=== PATIENT | female | born 1955 | race African-American/Black ===

== ENCOUNTER → 2020-12-10 | Day surgery (SDC) | payer OTHER | END | disposition home or self-care (01) | LOC: JRADUS-SUR 08:24 | PROVIDERS: ATTEND Surgery Surgical Oncology | PROC: 0H9U3ZX Drainage of Left Breast, Percutaneous Approach, Diagnostic (ICD-10-PCS; principal; 2020-12-10) | DX: C50.812 Malignant neoplasm of overlapping sites of left female breast (principal) | CPT/HCPCS: 19083; 19084; 77065-TC; 87899; 88305-TC; 88341-TC; 88342-TC; A4648 ==

== ENCOUNTER 2021-01-14 05:11 | Day surgery (SDC) | payer OTHER ==
[2021-01-13 13:15] VITALS: BMI 30.4
[2021-01-14] MEDS ORDERED: MIDAZOLAM HCL 2 MG/2 ML SINGLE DOSE VIAL IVPUSH ONE (12:00)
[2021-01-14] MEDS ORDERED: SODIUM CHLORIDE 0.9% 500 ML IV SCH (12:05)
[2021-01-14 17:32] VITALS: BP 113/66; PULSE 55; TEMP 97.8
== END 2021-01-14 17:00 | disposition home or self-care (01) ==
LOC: JRADIR 05:11
PROVIDERS: ATTEND Internal Medicine Hematology & Oncology
PROC: 0PB03ZX Excision of Sternum, Percutaneous Approach, Diagnostic (ICD-10-PCS; principal; 2021-01-14)
DX: C50.912 Malignant neoplasm of unspecified site of left female breast (principal); C79.51 Secondary malignant neoplasm of bone
CPT/HCPCS: 20220; 88305-TC; 88341-TC; 88342-TC

== ENCOUNTER 2021-02-25 07:28 | Day surgery (SDC) | payer OTHER ==
[2021-02-25] MEDS ORDERED: DENOSUMAB 120 MG/1.7 ML VIAL SQ ONE (10:00)
[2021-02-25 17:24] VITALS: BP 117/69; PULSE 62; TEMP 97.4
== END 2021-02-25 13:47 | disposition home or self-care (01) ==
LOC: JONCCHEMO 07:28
PROVIDERS: ATTEND Internal Medicine Hematology & Oncology
PROC: 3E013GC Introduction of Other Therapeutic Substance into Subcutaneous Tissue, Percutaneous Approach (ICD-10-PCS; principal; 2021-02-25)
DX: C50.912 Malignant neoplasm of unspecified site of left female breast (principal); C79.51 Secondary malignant neoplasm of bone; Z76.89 Persons encountering health services in other specified circumstances
CPT/HCPCS: 96372; J0897

== ENCOUNTER 2021-03-25 08:55 | Day surgery (SDC) | payer OTHER ==
[2021-03-25] MEDS ORDERED: DENOSUMAB 120 MG/1.7 ML VIAL SQ ONE (10:00)
[2021-03-25 11:18] LABS: BASO % 1.4 % (0-2.0); EOS % 2.6 % (0-4.5); HEMATOCRIT 36.7 % (32.4-45.2); HEMOGLOBIN 11.8 GM/dL (10.7-15.3); LYMPH % 44.8 % (8-40); MCH 30.9 pg (25.7-33.7); MCHC 32.1 g/dl (32.0-36.0); MEAN CELL VOLUME 96.1 fl (80-96); MONO % 6.3 % (3.8-10.2); NEUT % 44.9 % (42.8-82.8); PLATELET COUNT 322 10^3/uL (134-434); RBC 3.82 M/mm3 (3.60-5.2); RDW 15.3 % (11.6-15.6); WHITE BLOOD COUNT 4.5 K/mm3 (4.0-10.0)
[2021-03-25 11:52] LABS: CALCIUM 8.9 mg/dL (8.5-10.1)
[2021-03-25 11:53] LABS: ALBUMIN 3.7 g/dl (3.4-5.0)
[2021-03-25 11:57] LABS: BILIRUBIN,TOTAL 0.5 mg/dL (0.2-1); TOT PROT 7.1 g/dl (6.4-8.2)
[2021-03-25 16:33] VITALS: BP 108/62; PULSE 61; TEMP 97.7
== END 2021-03-25 13:00 | disposition home or self-care (01) ==
LOC: JONCCHEMO 08:55
PROVIDERS: ATTEND Internal Medicine Hematology & Oncology
PROC: 3E013GC Introduction of Other Therapeutic Substance into Subcutaneous Tissue, Percutaneous Approach (ICD-10-PCS; principal; 2021-03-25)
DX: C50.112 Malignant neoplasm of central portion of left female breast (principal); Z17.0 Estrogen receptor positive status [ER+]; Z76.89 Persons encountering health services in other specified circumstances
CPT/HCPCS: 36415; 80053; 85025; 96372; J0897

== ENCOUNTER 2021-04-22 07:17 | Day surgery (SDC) | payer OTHER ==
[2021-04-22] MEDS ORDERED: DENOSUMAB 120 MG/1.7 ML VIAL SQ ONE (10:00)
[2021-04-22 11:54] LABS: BASO % 1.3 % (0-2.0); EOS % 2.2 % (0-4.5); HEMATOCRIT 37.3 % (32.4-45.2); HEMOGLOBIN 12.3 GM/dL (10.7-15.3); LYMPH % 48.7 % (8-40); MCH 32.8 pg (25.7-33.7); MEAN CELL VOLUME 99.5 fl (80-96); MEAN PLT VOLUME 7.4 fl (7.5-11.1); MONO % 6.4 % (3.8-10.2); NEUT % 41.4 % (42.8-82.8); PLATELET COUNT 176 10^3/uL (134-434); RBC 3.75 M/mm3 (3.60-5.2); RDW 20.1 % (11.6-15.6); WHITE BLOOD COUNT 5.9 K/mm3 (4.0-10.0)
[2021-04-22 12:14] LABS: ALBUMIN 3.9 g/dl (3.4-5.0); BLOOD UREA NITROGEN 16.8 mg/dL (7-18)
[2021-04-22 12:19] LABS: BILIRUBIN,TOTAL 0.4 mg/dL (0.2-1)
[2021-04-22 18:13] VITALS: BP 101/62; PULSE 89; TEMP 98
== END 2021-04-22 13:15 | disposition home or self-care (01) ==
LOC: JONCCHEMO 07:17
PROVIDERS: ATTEND Internal Medicine Hematology & Oncology
PROC: 3E013GC Introduction of Other Therapeutic Substance into Subcutaneous Tissue, Percutaneous Approach (ICD-10-PCS; principal; 2021-04-22)
DX: Z76.89 Persons encountering health services in other specified circumstances (principal); C50.112 Malignant neoplasm of central portion of left female breast; Z17.0 Estrogen receptor positive status [ER+]
CPT/HCPCS: 36415; 80053; 85025; 96372; J0897

== ENCOUNTER 2021-05-06 05:43 | Day surgery (SDC) | payer OTHER ==
[2021-05-01 13:50] VITALS: BMI 30.6
[2021-05-06] MEDS ORDERED: SODIUM CHLORIDE 500 ML IV SCH (10:30)
[2021-05-06] MEDS ORDERED: MIDAZOLAM HCL 2 MG/2 ML SINGLE DOSE VIAL IVPUSH ONE ×2 (10:40→10:55)
[2021-05-06] MEDS ORDERED: ACETAMINOPHEN INJECTION 100 ML IVPB ONE (13:10)
[2021-05-06] MEDS ORDERED: ACETAMINOPHEN 1000 MG/100 ML BAG IVPB ONE (13:24)
[2021-05-06 15:05] VITALS: BP 114/65; PULSE 68; TEMP 98.9
== END 2021-05-06 16:22 | disposition home or self-care (01) ==
LOC: JRADIR 05:43
PROVIDERS: ATTEND Internal Medicine Hematology & Oncology
PROC: 0JH63WZ Insertion of Totally Implantable Vascular Access Device into Chest Subcutaneous Tissue and Fascia, Percutaneous Approach (ICD-10-PCS; principal; 2021-05-06)
PROC: 02HV33Z Insertion of Infusion Device into Superior Vena Cava, Percutaneous Approach (ICD-10-PCS; 2021-05-06)
PROC: B518ZZA Fluoroscopy of Superior Vena Cava, Guidance (ICD-10-PCS; 2021-05-06)
DX: C50.919 Malignant neoplasm of unspecified site of unspecified female breast (principal)
CPT/HCPCS: 36561; C1751; C1788

== ENCOUNTER 2021-05-07 07:00 | Day surgery (SDC) | payer OTHER ==
[2021-05-07 09:36] LABS: BASO % 1.5 % (0-2.0); EOS % 5.4 % (0-4.5); HEMATOCRIT 36.6 % (32.4-45.2); HEMOGLOBIN 12.1 GM/dL (10.7-15.3); LYMPH % 23.9 % (8-40); MCH 32.8 pg (25.7-33.7); MCHC 33.1 g/dl (32.0-36.0); MEAN CELL VOLUME 99.1 fl (80-96); MEAN PLT VOLUME 8.6 fl (7.5-11.1); MONO % 6.8 % (3.8-10.2); NEUT % 62.4 % (42.8-82.8); PLATELET COUNT 234 10^3/uL (134-434); RBC 3.69 M/mm3 (3.60-5.2); RDW 19.7 % (11.6-15.6); WHITE BLOOD COUNT 6.9 K/mm3 (4.0-10.0)
[2021-05-07] MEDS ORDERED: ONDANSETRON 4 MG/2 ML VIAL IVPB ONE (09:39)
[2021-05-07] MEDS ORDERED: SODIUM CHLORIDE 250 ML IV STA (09:52)
[2021-05-07] MEDS ORDERED: ONDANSETRON INJECTION 8 MG in SODIUM CHLORIDE 50 ML IVPB ONE (10:00)
[2021-05-07] MEDS ORDERED: ONDANSETRON INJECTION 8 MG in SODIUM CHLORIDE 50 ML IVPUSH ONE (10:00)
[2021-05-07 10:05] LABS: CALCIUM 9.1 mg/dL (8.5-10.1)
[2021-05-07 10:06] LABS: ALBUMIN 3.7 g/dl (3.4-5.0); BLOOD UREA NITROGEN 24.6 mg/dL (7-18)
[2021-05-07 10:10] LABS: BILIRUBIN,TOTAL 0.7 mg/dL (0.2-1); TOT PROT 6.8 g/dl (6.4-8.2)
[2021-05-07] MEDS ORDERED: DEXAMETHASONE SODIUM PHOSPHATE 10 MG, DIPHENHYDRAMINE 25 MG in SODIUM CHLORIDE 100 ML IVPB ONE (10:30)
[2021-05-07] MEDS ORDERED: FAMOTIDINE 20 MG/50 ML IVPB 20 MG/50 ML MG IVPB ONE (10:30)
[2021-05-07] MEDS ORDERED: PERTUZUMAB 840 MG in SODIUM CHLORIDE 250 ML IVPB ONE (11:00)
[2021-05-07] MEDS ORDERED: TRASTUZUMAB ANNS IVPB ONE (12:00)
[2021-05-07] MEDS ORDERED: SODIUM CHLORIDE IVPB ONE (12:00)
[2021-05-07] MEDS ORDERED: PACLITAXEL 150 MG in SODIUM CHLORIDE 250 ML IVPB ONE (13:30)
[2021-05-07 15:56] VITALS: TEMP 98.4
[2021-05-07 17:46] VITALS: BP 118/68; PULSE 76
== END 2021-05-07 17:30 | disposition home or self-care (01) ==
LOC: JONCCHEMO 07:00
PROVIDERS: ATTEND Internal Medicine Hematology & Oncology
DX: Z51.11 Encounter for antineoplastic chemotherapy (principal); C50.919 Malignant neoplasm of unspecified site of unspecified female breast
CPT/HCPCS: 36415; 80053; 85025; 96361; 96367; 96413; 96417; J9306; Q5117

== ENCOUNTER 2021-05-14 07:37 | Day surgery (SDC) | payer OTHER ==
[~2021-05-14 07:37] MED LIST: DEXAMETHASONE SODIUM PHOSPHATE 10 MG, DIPHENHYDRAMINE 25 MG in SODIUM CHLORIDE 100 ML IVPB ONE; FAMOTIDINE 20 MG/50 ML IVPB 20 MG/50 ML MG IVPB ONE; PACLITAXEL 150 MG in SODIUM CHLORIDE 250 ML IVPB ONE; PERTUZUMAB 840 MG in SODIUM CHLORIDE 250 ML IVPB ONE; SODIUM CHLORIDE IVPB ONE; TRASTUZUMAB ANNS IVPB ONE
[2021-05-14 08:49] LABS: BASO % 2.2 % (0-2.0); EOS % 6.5 % (0-4.5); HEMATOCRIT 34.8 % (32.4-45.2); HEMOGLOBIN 11.4 GM/dL (10.7-15.3); LYMPH % 30.6 % (8-40); MCH 32.6 pg (25.7-33.7); MCHC 32.7 g/dl (32.0-36.0); MEAN CELL VOLUME 99.7 fl (80-96); MEAN PLT VOLUME 9.1 fl (7.5-11.1); NEUT % 56.7 % (42.8-82.8); PLATELET COUNT 230 10^3/uL (134-434); RBC 3.49 M/mm3 (3.60-5.2); RDW 18.9 % (11.6-15.6); WHITE BLOOD COUNT 5.5 K/mm3 (4.0-10.0)
[2021-05-14 08:59] LABS: ALBUMIN 3.4 g/dl (3.4-5.0)
[2021-05-14 09:03] LABS: BILIRUBIN,TOTAL 1.7 mg/dL (0.2-1); TOT PROT 6.7 g/dl (6.4-8.2)
[2021-05-14] MEDS ORDERED: SODIUM CHLORIDE 500 ML IV STA (09:43)
[2021-05-14] MEDS ORDERED: SODIUM CHLORIDE 1,000 ML IV STA (09:45)
[2021-05-14] MEDS ORDERED: DEXAMETHASONE SODIUM PHOSPHATE 10 MG, DIPHENHYDRAMINE 25 MG in SODIUM CHLORIDE 100 ML IVPB ONE (10:30)
[2021-05-14] MEDS ORDERED: FAMOTIDINE 20 MG/50 ML IVPB 20 MG/50 ML MG IVPB ONE (10:30)
[2021-05-14] MEDS ORDERED: PACLITAXEL 150 MG in SODIUM CHLORIDE 250 ML IVPB ONE (11:00)
[2021-05-14] MEDS ORDERED: LOPERAMIDE HCL 2 MG CAPSULE PO ONE (12:00)
[2021-05-14 16:47] VITALS: TEMP 98
[2021-05-14 16:50] VITALS: BP 113/64; PULSE 68
[2021-05-14] MEDS ORDERED: PORTA CATH FLUSH 10 ML IVPUSH ONE (16:50)
== END 2021-05-14 13:45 | disposition home or self-care (01) ==
LOC: JONCCHEMO 07:37
PROVIDERS: ATTEND Internal Medicine Hematology & Oncology
PROC: 3E0337Z Introduction of Electrolytic and Water Balance Substance into Peripheral Vein, Percutaneous Approach (ICD-10-PCS; principal; 2021-05-14)
DX: Z76.89 Persons encountering health services in other specified circumstances (principal); C50.911 Malignant neoplasm of unspecified site of right female breast
CPT/HCPCS: 36415; 80053; 85025; 96360; 96361; Q5117

== ENCOUNTER 2021-05-21 08:28 | Day surgery (SDC) | payer OTHER ==
[2021-05-21 08:38] LABS: BASO % 1.3 % (0-2.0); HEMATOCRIT 35.7 % (32.4-45.2); HEMOGLOBIN 11.7 GM/dL (10.7-15.3); LYMPH % 28.7 % (8-40); MCH 32.5 pg (25.7-33.7); MCHC 32.9 g/dl (32.0-36.0); MEAN CELL VOLUME 98.8 fl (80-96); MEAN PLT VOLUME 8.4 fl (7.5-11.1); MONO % 8.2 % (3.8-10.2); NEUT % 56.8 % (42.8-82.8); PLATELET COUNT 239 10^3/uL (134-434); RBC 3.61 M/mm3 (3.60-5.2); RDW 18.6 % (11.6-15.6); WHITE BLOOD COUNT 5.5 K/mm3 (4.0-10.0)
[2021-05-21 09:27] LABS: ALBUMIN 3.4 g/dl (3.4-5.0); CALCIUM 8.6 mg/dL (8.5-10.1)
[2021-05-21] MEDS ORDERED: DEXAMETHASONE SODIUM PHOSPHATE 10 MG, DIPHENHYDRAMINE 25 MG in SODIUM CHLORIDE 100 ML IVPB ONE (09:30)
[2021-05-21] MEDS ORDERED: FAMOTIDINE 20 MG/50 ML IVPB 20 MG/50 ML MG IVPB ONE (09:30)
[2021-05-21 09:33] LABS: BILIRUBIN,TOTAL 0.9 mg/dL (0.2-1); TOT PROT 6.5 g/dl (6.4-8.2)
[2021-05-21] MEDS ORDERED: PACLITAXEL 150 MG in SODIUM CHLORIDE 250 ML IVPB ONE (10:00)
[2021-05-21 10:22] VITALS: TEMP 98.1
[2021-05-21] MEDS ORDERED: PORTA CATH FLUSH 10 ML IVPUSH PRN (10:37)
[2021-05-21 15:20] VITALS: BP 117/73; PULSE 69
== END 2021-05-21 12:30 | disposition home or self-care (01) ==
LOC: JONCCHEMO 08:28
PROVIDERS: ATTEND Internal Medicine Hematology & Oncology
DX: Z51.11 Encounter for antineoplastic chemotherapy (principal); C50.911 Malignant neoplasm of unspecified site of right female breast
CPT/HCPCS: 36415; 80053; 85025; 96367; 96413

== ENCOUNTER 2021-05-28 08:33 | Day surgery (SDC) | payer OTHER ==
[2021-05-28] MEDS ORDERED: DENOSUMAB 120 MG/1.7 ML VIAL SQ ONE (09:24)
[2021-05-28] MEDS ORDERED: DEXAMETHASONE SODIUM PHOSPHATE 10 MG, DIPHENHYDRAMINE 25 MG in SODIUM CHLORIDE 100 ML IVPB ONE (09:30)
[2021-05-28] MEDS ORDERED: FAMOTIDINE 20 MG/50 ML IVPB 20 MG/50 ML MG IVPB ONE (09:30)
[2021-05-28] MEDS ORDERED: PACLITAXEL 150 MG in SODIUM CHLORIDE 250 ML IVPB ONE (10:00)
[2021-05-28 10:26] LABS: BASO % 2.1 % (0-2.0); HEMATOCRIT 35.9 % (32.4-45.2); HEMOGLOBIN 11.9 GM/dL (10.7-15.3); LYMPH % 33.2 % (8-40); MCH 32.9 pg (25.7-33.7); MCHC 33.2 g/dl (32.0-36.0); MEAN CELL VOLUME 98.9 fl (80-96); MEAN PLT VOLUME 9.1 fl (7.5-11.1); MONO % 2.9 % (3.8-10.2); NEUT % 59.8 % (42.8-82.8); PLATELET COUNT 187 10^3/uL (134-434); RBC 3.63 M/mm3 (3.60-5.2); RDW 17.6 % (11.6-15.6); WHITE BLOOD COUNT 5.9 K/mm3 (4.0-10.0)
[2021-05-28 10:53] LABS: BLOOD UREA NITROGEN 9.4 mg/dL (7-18); CALCIUM 8.7 mg/dL (8.5-10.1)
[2021-05-28 10:54] LABS: ALBUMIN 3.6 g/dl (3.4-5.0)
[2021-05-28 10:56] LABS: CREATININE 0.9 mg/dL (0.55-1.3)
[2021-05-28 17:05] VITALS: TEMP 98
[2021-05-28] MEDS ORDERED: PORTA CATH FLUSH 10 ML IVPUSH PRN (17:05)
[2021-05-28 17:11] VITALS: BP 118/81; PULSE 81
== END 2021-05-28 13:45 | disposition home or self-care (01) ==
LOC: JONCCHEMO 08:33
PROVIDERS: ATTEND Internal Medicine Hematology & Oncology
DX: Z51.11 Encounter for antineoplastic chemotherapy (principal); C50.911 Malignant neoplasm of unspecified site of right female breast
CPT/HCPCS: 36415; 80053; 85025; 96367; 96372; 96413; J0897

== ENCOUNTER 2021-06-04 07:05 | Day surgery (SDC) | payer OTHER ==
[2021-06-04] MEDS ORDERED: FAMOTIDINE 20 MG/50 ML IVPB 20 MG/50 ML MG IVPB ONE ×2 (09:30)
[2021-06-04] MEDS ORDERED: DEXAMETHASONE SODIUM PHOSPHATE 10 MG, DIPHENHYDRAMINE 25 MG in SODIUM CHLORIDE 100 ML IVPB ONE (09:30)
[2021-06-04 09:32] LABS: BASO % 1.1 % (0-2.0); EOS % 1.4 % (0-4.5); HEMATOCRIT 36.6 % (32.4-45.2); LYMPH % 34.1 % (8-40); MCH 32.5 pg (25.7-33.7); MCHC 32.7 g/dl (32.0-36.0); MEAN CELL VOLUME 99.6 fl (80-96); MEAN PLT VOLUME 9.2 fl (7.5-11.1); MONO % 4.6 % (3.8-10.2); NEUT % 58.8 % (42.8-82.8); PLATELET COUNT 215 10^3/uL (134-434); RBC 3.68 M/mm3 (3.60-5.2); RDW 17.8 % (11.6-15.6); WHITE BLOOD COUNT 3.9 K/mm3 (4.0-10.0)
[2021-06-04 09:49] LABS: ALBUMIN 4.1 g/dl (3.4-5.0); BLOOD UREA NITROGEN 7.4 mg/dL (7-18)
[2021-06-04 09:52] LABS: CREATININE 1.2 mg/dL (0.55-1.3)
[2021-06-04 09:53] LABS: BILIRUBIN,TOTAL 1.4 mg/dL (0.2-1)
[2021-06-04 09:54] LABS: TOT PROT 7.3 g/dl (6.4-8.2)
[2021-06-04] MEDS ORDERED: FAMOTIDINE IVPB ONE (10:00)
[2021-06-04] MEDS ORDERED: PERTUZUMAB 420 MG in SODIUM CHLORIDE 250 ML IVPB ONE (10:00)
[2021-06-04] MEDS ORDERED: DEXTROSE 5% IVPB ONE (10:00)
[2021-06-04] MEDS ORDERED: WATER IVPB ONE (10:00)
[2021-06-04] MEDS ORDERED: SODIUM CHLORIDE 1,000 ML IV STA (10:11)
[2021-06-04] MEDS ORDERED: SODIUM CHLORIDE IVPB ONE (10:30)
[2021-06-04] MEDS ORDERED: TRASTUZUMAB ANNS IVPB ONE (10:30)
[2021-06-04] MEDS ORDERED: PACLITAXEL 150 MG in SODIUM CHLORIDE 250 ML IVPB ONE (11:00)
[2021-06-04 17:01] VITALS: TEMP 98.5
[2021-06-04] MEDS ORDERED: PORTA CATH FLUSH 10 ML IVPUSH PRN (17:04)
[2021-06-04 17:06] VITALS: BP 107/57; PULSE 72
== END 2021-06-04 14:00 | disposition home or self-care (01) ==
LOC: JONCCHEMO 07:05
PROVIDERS: ATTEND Internal Medicine Hematology & Oncology
PROC: 3E0437Z Introduction of Electrolytic and Water Balance Substance into Central Vein, Percutaneous Approach (ICD-10-PCS; principal; 2021-06-04)
DX: C50.911 Malignant neoplasm of unspecified site of right female breast (principal); Z76.89 Persons encountering health services in other specified circumstances
CPT/HCPCS: 36415; 80053; 85025; 87177; 87209; 87324; 87449; 96360; 96361; Q5117

== ENCOUNTER 2021-06-05 08:22 | Day surgery (SDC) | payer OTHER ==
[2021-06-05] MEDS ORDERED: SODIUM CHLORIDE 1,000 ML IV STA (10:22)
[2021-06-05 17:16] VITALS: TEMP 98.3
[2021-06-05 17:19] VITALS: BP 129/61; PULSE 67
[2021-06-05] MEDS ORDERED: PORTA CATH FLUSH 10 ML IVPUSH PRN (17:19)
== END 2021-06-05 13:45 | disposition home or self-care (01) ==
LOC: JONCNONCHE 08:22
PROVIDERS: ATTEND Internal Medicine Hematology & Oncology
PROC: 3E0437Z Introduction of Electrolytic and Water Balance Substance into Central Vein, Percutaneous Approach (ICD-10-PCS; principal; 2021-06-05)
DX: C50.919 Malignant neoplasm of unspecified site of unspecified female breast (principal); Z17.0 Estrogen receptor positive status [ER+]; Z76.89 Persons encountering health services in other specified circumstances
CPT/HCPCS: 96360; 96361; 96365; 96366

== ENCOUNTER 2021-06-11 07:22 | Day surgery (SDC) | payer OTHER ==
[~2021-06-11 07:22] MED LIST changes: -DEXAMETHASONE SODIUM PHOSPHATE 10 MG, DIPHENHYDRAMINE 25 MG in SODIUM CHLORIDE 100 ML IVPB ONE; -PACLITAXEL 150 MG in SODIUM CHLORIDE 250 ML IVPB ONE; -PERTUZUMAB 840 MG in SODIUM CHLORIDE 250 ML IVPB ONE; -SODIUM CHLORIDE IVPB ONE; -TRASTUZUMAB ANNS IVPB ONE
[2021-06-11 09:07] LABS: BASO % 1.1 % (0-2.0); EOS % 1.7 % (0-4.5); HEMATOCRIT 34.9 % (32.4-45.2); HEMOGLOBIN 11.5 GM/dL (10.7-15.3); LYMPH % 31.3 % (8-40); MCH 32.5 pg (25.7-33.7); MCHC 32.9 g/dl (32.0-36.0); MEAN CELL VOLUME 98.8 fl (80-96); MEAN PLT VOLUME 8.4 fl (7.5-11.1); MONO % 8.7 % (3.8-10.2); NEUT % 57.2 % (42.8-82.8); PLATELET COUNT 218 10^3/uL (134-434); RBC 3.53 M/mm3 (3.60-5.2); RDW 17.4 % (11.6-15.6)
[2021-06-11] MEDS ORDERED: SODIUM CHLORIDE 500 ML IV STA (09:27)
[2021-06-11] MEDS ORDERED: FAMOTIDINE 20 MG/50 ML IVPB 20 MG/50 ML MG IVPB ONE (09:30)
[2021-06-11] MEDS ORDERED: DEXAMETHASONE SODIUM PHOSPHATE 10 MG, DIPHENHYDRAMINE 25 MG in SODIUM CHLORIDE 100 ML IVPB ONE (09:30)
[2021-06-11 09:31] LABS: ALBUMIN 3.5 g/dl (3.4-5.0); CALCIUM 8.4 mg/dL (8.5-10.1); MAGNESIUM 1.8 mg/dL (1.8-2.4)
[2021-06-11 09:32] LABS: BLOOD UREA NITROGEN 5.7 mg/dL (7-18)
[2021-06-11 09:35] LABS: CREATININE 0.9 mg/dL (0.55-1.3)
[2021-06-11 09:36] LABS: BILIRUBIN,TOTAL 0.9 mg/dL (0.2-1); TOT PROT 6.4 g/dl (6.4-8.2)
[2021-06-11] MEDS ORDERED: TRASTUZUMAB ANNS IVPB ONE (10:00)
[2021-06-11] MEDS ORDERED: SODIUM CHLORIDE IVPB ONE (10:00)
[2021-06-11] MEDS ORDERED: PACLITAXEL 150 MG in SODIUM CHLORIDE 250 ML IVPB ONE (10:00)
[2021-06-11] MEDS ORDERED: PACLITAXEL 114 MG in SODIUM CHLORIDE 250 ML IVPB ONE (10:30)
[2021-06-11 18:20] VITALS: BP 126/74; PULSE 66; TEMP 98.1
[2021-06-11] MEDS ORDERED: PORTA CATH FLUSH 10 ML IVPUSH PRN (18:20)
== END 2021-06-11 15:15 | disposition home or self-care (01) ==
LOC: JONCCHEMO 07:22
PROVIDERS: ATTEND Internal Medicine Hematology & Oncology
DX: Z51.11 Encounter for antineoplastic chemotherapy (principal); C50.919 Malignant neoplasm of unspecified site of unspecified female breast; Z17.0 Estrogen receptor positive status [ER+]
CPT/HCPCS: 36415; 80053; 83735; 85025; 96361; 96367; 96413; 96417; Q5117

== ENCOUNTER 2021-06-15 08:58 | Day surgery (SDC) | payer OTHER ==
[2021-06-15] MEDS ORDERED: SODIUM CHLORIDE 500 ML IV STA (09:13)
[2021-06-15] MEDS ORDERED: PORTA CATH FLUSH 10 ML IVPUSH PRN (11:30)
[2021-06-15 11:33] LABS: BLOOD UREA NITROGEN 10.5 mg/dL (7-18)
[2021-06-15 11:34] LABS: ALBUMIN 3.6 g/dl (3.4-5.0); BILIRUBIN,TOTAL 2.1 mg/dL (0.2-1); CREATININE 0.9 mg/dL (0.55-1.3); TOT PROT 6.6 g/dl (6.4-8.2)
[2021-06-15 17:10] VITALS: BP 122/69; PULSE 67; TEMP 98.2
== END 2021-06-15 11:45 | disposition home or self-care (01) ==
LOC: JONCNONCHE 08:58
PROVIDERS: ATTEND Internal Medicine Hematology & Oncology
PROC: 3E0437Z Introduction of Electrolytic and Water Balance Substance into Central Vein, Percutaneous Approach (ICD-10-PCS; principal; 2021-06-15)
DX: C50.919 Malignant neoplasm of unspecified site of unspecified female breast (principal); Z76.89 Persons encountering health services in other specified circumstances
CPT/HCPCS: 36415; 80053; 96360; 96361

== ENCOUNTER 2021-06-18 07:16 | Day surgery (SDC) | payer OTHER ==
[2021-06-18 08:47] LABS: BASO % 1.3 % (0-2.0); EOS % 1.3 % (0-4.5); HEMATOCRIT 35.4 % (32.4-45.2); HEMOGLOBIN 11.5 GM/dL (10.7-15.3); LYMPH % 34.2 % (8-40); MCH 32.1 pg (25.7-33.7); MCHC 32.4 g/dl (32.0-36.0); MEAN CELL VOLUME 99.1 fl (80-96); MEAN PLT VOLUME 8.9 fl (7.5-11.1); MONO % 4.2 % (3.8-10.2); PLATELET COUNT 219 10^3/uL (134-434); RBC 3.57 M/mm3 (3.60-5.2); RDW 17.4 % (11.6-15.6); WHITE BLOOD COUNT 5.9 K/mm3 (4.0-10.0)
[2021-06-18 09:25] LABS: ALBUMIN 3.6 g/dl (3.4-5.0); BLOOD UREA NITROGEN 9.8 mg/dL (7-18); MAGNESIUM 1.9 mg/dL (1.8-2.4)
[2021-06-18 09:27] LABS: TOT PROT 6.7 g/dl (6.4-8.2)
[2021-06-18 09:28] LABS: CREATININE 0.9 mg/dL (0.55-1.3)
[2021-06-18 09:29] LABS: BILIRUBIN,TOTAL 1.1 mg/dL (0.2-1)
[2021-06-18] MEDS ORDERED: SODIUM CHLORIDE 500 ML IV STA (09:36)
[2021-06-18] MEDS ORDERED: DEXAMETHASONE SODIUM PHOSPHATE 10 MG, DIPHENHYDRAMINE 25 MG in SODIUM CHLORIDE 100 ML IVPB ONE (10:00)
[2021-06-18] MEDS ORDERED: FAMOTIDINE 20 MG/50 ML IVPB 20 MG/50 ML MG IVPB ONE (10:00)
[2021-06-18] MEDS ORDERED: PERTUZUMAB 420 MG in SODIUM CHLORIDE 250 ML IVPB ONE (10:30)
[2021-06-18] MEDS ORDERED: TRASTUZUMAB ANNS IVPB ONE (11:30)
[2021-06-18] MEDS ORDERED: SODIUM CHLORIDE IVPB ONE (11:30)
[2021-06-18] MEDS ORDERED: PACLITAXEL 114 MG in SODIUM CHLORIDE 250 ML IVPB ONE (12:00)
[2021-06-18 15:47] VITALS: TEMP 97.9
[2021-06-18] MEDS ORDERED: PORTA CATH FLUSH 10 ML IVPUSH PRN (15:47)
[2021-06-18 15:49] VITALS: BP 130/79; PULSE 69
== END 2021-06-18 15:00 | disposition home or self-care (01) ==
LOC: JONCCHEMO 07:16
PROVIDERS: ATTEND Internal Medicine Hematology & Oncology
DX: Z51.11 Encounter for antineoplastic chemotherapy (principal); C50.919 Malignant neoplasm of unspecified site of unspecified female breast
CPT/HCPCS: 36415; 80053; 83735; 85025; 96367; 96413; 96417; J9306; Q5117

== ENCOUNTER 2021-06-22 06:51 | Day surgery (SDC) | payer OTHER ==
[2021-06-22] MEDS ORDERED: SODIUM CHLORIDE 500 ML IV ONE (08:45)
[2021-06-22] MEDS ORDERED: SODIUM CHLORIDE 1,000 ML IV ONE (08:45)
[2021-06-22 17:59] VITALS: BP 117/66; PULSE 77; TEMP 98.6
== END 2021-06-22 11:40 | disposition home or self-care (01) ==
LOC: JONCNONCHE 06:51
PROVIDERS: ATTEND Internal Medicine Hematology & Oncology
PROC: 3E0437Z Introduction of Electrolytic and Water Balance Substance into Central Vein, Percutaneous Approach (ICD-10-PCS; principal; 2021-06-22)
DX: C50.919 Malignant neoplasm of unspecified site of unspecified female breast (principal); Z79.84 Long term (current) use of oral hypoglycemic drugs
CPT/HCPCS: 96360; 96361

== ENCOUNTER 2021-06-25 06:59 | Day surgery (SDC) | payer OTHER ==
[2021-06-25 09:09] LABS: EOS % 1.1 % (0-4.5); HEMATOCRIT 34.4 % (32.4-45.2); HEMOGLOBIN 11.3 GM/dL (10.7-15.3); LYMPH % 36.3 % (8-40); MCH 32.7 pg (25.7-33.7); MCHC 32.8 g/dl (32.0-36.0); MEAN CELL VOLUME 99.7 fl (80-96); MONO % 3.7 % (3.8-10.2); NEUT % 57.9 % (42.8-82.8); PLATELET COUNT 200 10^3/uL (134-434); RBC 3.45 M/mm3 (3.60-5.2); RDW 17.1 % (11.6-15.6)
[2021-06-25 09:26] LABS: CALCIUM 8.6 mg/dL (8.5-10.1)
[2021-06-25 09:27] LABS: ALBUMIN 3.7 g/dl (3.4-5.0); BLOOD UREA NITROGEN 8.4 mg/dL (7-18)
[2021-06-25 09:30] LABS: CREATININE 0.9 mg/dL (0.55-1.3)
[2021-06-25] MEDS ORDERED: DEXAMETHASONE SODIUM PHOSPHATE 10 MG, DIPHENHYDRAMINE 25 MG in SODIUM CHLORIDE 100 ML IVPB ONE (09:30)
[2021-06-25] MEDS ORDERED: WATER IVPB ONE ×2 (09:30→10:30)
[2021-06-25] MEDS ORDERED: FAMOTIDINE IVPB ONE (09:30)
[2021-06-25] MEDS ORDERED: DEXTROSE 5% IVPB ONE ×2 (09:30→10:30)
[2021-06-25] MEDS ORDERED: DEXAMETHASONE SOD PHOSPHATE 4 MG/1 ML VIAL IVPB ONE (09:31)
[2021-06-25 09:32] LABS: BILIRUBIN,TOTAL 2.1 mg/dL (0.2-1); TOT PROT 6.7 g/dl (6.4-8.2)
[2021-06-25] MEDS ORDERED: SODIUM CHLORIDE 500 ML IV STA (09:33)
[2021-06-25] MEDS ORDERED: SODIUM CHLORIDE IVPB ONE ×2 (10:00→12:30)
[2021-06-25] MEDS ORDERED: TRASTUZUMAB ANNS IVPB ONE (10:00)
[2021-06-25 10:07] VITALS: TEMP 98.2
[2021-06-25] MEDS ORDERED: DEXAMETHASONE IVPB ONE (10:30)
[2021-06-25] MEDS ORDERED: DIPHENHYDRAMINE IVPB ONE ×2 (10:30→12:30)
[2021-06-25] MEDS ORDERED: PACLITAXEL 114 MG in SODIUM CHLORIDE 250 ML IVPB ONE (10:30)
[2021-06-25] MEDS ORDERED: DEXAMETHASONE SODIUM PHOSPHATE IVPB ONE (12:30)
[2021-06-25 14:31] LABS: HEPATITIS B SURFACE AG MATERN NON-REACTIVE (NONREACTIVE)
[2021-06-25 15:45] VITALS: BP 134/72; PULSE 71
[2021-06-25] MEDS ORDERED: PORTA CATH FLUSH 10 ML IVPUSH PRN (15:45)
== END 2021-06-25 15:46 | disposition home or self-care (01) ==
LOC: JONCCHEMO 06:59
PROVIDERS: ATTEND Internal Medicine Hematology & Oncology
DX: Z51.11 Encounter for antineoplastic chemotherapy (principal); C50.919 Malignant neoplasm of unspecified site of unspecified female breast
CPT/HCPCS: 36415; 80053; 85025; 86704; 87340; 87522; 96361; 96367; 96413; 96417; Q5117

== ENCOUNTER 2021-07-02 08:17 | Day surgery (SDC) | payer OTHER ==
[2021-07-02 08:40] LABS: BASO % 1.3 % (0-2.0); EOS % 1.5 % (0-4.5); HEMATOCRIT 35.8 % (32.4-45.2); HEMOGLOBIN 11.7 GM/dL (10.7-15.3); LYMPH % 46.4 % (8-40); MCH 32.3 pg (25.7-33.7); MCHC 32.6 g/dl (32.0-36.0); MEAN CELL VOLUME 99.2 fl (80-96); MEAN PLT VOLUME 8.7 fl (7.5-11.1); MONO % 5.4 % (3.8-10.2); NEUT % 45.4 % (42.8-82.8); PLATELET COUNT 249 10^3/uL (134-434); RBC 3.61 M/mm3 (3.60-5.2); RDW 17.1 % (11.6-15.6); WHITE BLOOD COUNT 3.7 K/mm3 (4.0-10.0)
[2021-07-02 08:51] LABS: CALCIUM 8.9 mg/dL (8.5-10.1)
[2021-07-02 08:52] LABS: ALBUMIN 3.7 g/dl (3.4-5.0); BLOOD UREA NITROGEN 5.9 mg/dL (7-18)
[2021-07-02 08:55] LABS: CREATININE 0.9 mg/dL (0.55-1.3)
[2021-07-02 08:56] LABS: BILIRUBIN,TOTAL 1.1 mg/dL (0.2-1); TOT PROT 6.9 g/dl (6.4-8.2)
[2021-07-02] MEDS ORDERED: WATER IVPB ONE (09:30)
[2021-07-02] MEDS ORDERED: FAMOTIDINE IVPB ONE (09:30)
[2021-07-02] MEDS ORDERED: DEXAMETHASONE SODIUM PHOSPHATE 4 MG, DIPHENHYDRAMINE 25 MG in SODIUM CHLORIDE 100 ML IVPB ONE (09:30)
[2021-07-02] MEDS ORDERED: DEXTROSE 5% IVPB ONE (09:30)
[2021-07-02] MEDS ORDERED: SODIUM CHLORIDE 1,000 ML IV STA (09:57)
[2021-07-02] MEDS ORDERED: PACLITAXEL 114 MG in SODIUM CHLORIDE 250 ML IVPB ONE (10:00)
[2021-07-02] MEDS ORDERED: SODIUM CHLORIDE IVPB ONE (11:00)
[2021-07-02] MEDS ORDERED: TRASTUZUMAB ANNS IVPB ONE (11:00)
[2021-07-02 17:11] VITALS: BP 137/84; PULSE 66; TEMP 98.2
[2021-07-02] MEDS ORDERED: PORTA CATH FLUSH 10 ML IVPUSH PRN (17:11)
== END 2021-07-02 14:20 | disposition home or self-care (01) ==
LOC: JONCCHEMO 08:17
PROVIDERS: ATTEND Internal Medicine Hematology & Oncology
PROC: 3E0437Z Introduction of Electrolytic and Water Balance Substance into Central Vein, Percutaneous Approach (ICD-10-PCS; principal; 2021-07-02)
DX: C50.919 Malignant neoplasm of unspecified site of unspecified female breast (principal); Z76.89 Persons encountering health services in other specified circumstances
CPT/HCPCS: 36415; 80053; 85025; 86300; 87324; 87449; 96360; 96361; Q5117

== ENCOUNTER 2021-07-09 07:17 | Day surgery (SDC) | payer OTHER ==
[2021-07-09 09:07] LABS: BASO % 0.8 % (0-2.0); EOS % 0.9 % (0-4.5); HEMATOCRIT 34.8 % (32.4-45.2); HEMOGLOBIN 11.4 GM/dL (10.7-15.3); LYMPH % 28.9 % (8-40); MCH 32.2 pg (25.7-33.7); MCHC 32.9 g/dl (32.0-36.0); MEAN PLT VOLUME 8.4 fl (7.5-11.1); MONO % 12.1 % (3.8-10.2); NEUT % 57.3 % (42.8-82.8); PLATELET COUNT 200 10^3/uL (134-434); RBC 3.55 M/mm3 (3.60-5.2); RDW 16.5 % (11.6-15.6); WHITE BLOOD COUNT 6.2 K/mm3 (4.0-10.0)
[2021-07-09 09:23] LABS: CALCIUM 8.5 mg/dL (8.5-10.1)
[2021-07-09 09:24] LABS: ALBUMIN 3.5 g/dl (3.4-5.0); BLOOD UREA NITROGEN 11.1 mg/dL (7-18); MAGNESIUM 1.9 mg/dL (1.8-2.4)
[2021-07-09] MEDS ORDERED: SODIUM CHLORIDE 500 ML IV STA (09:24)
[2021-07-09 09:27] LABS: CREATININE 0.9 mg/dL (0.55-1.3)
[2021-07-09 09:28] LABS: TOT PROT 6.5 g/dl (6.4-8.2)
[2021-07-09 09:29] LABS: BILIRUBIN,TOTAL 2.5 mg/dL (0.2-1)
[2021-07-09] MEDS ORDERED: FAMOTIDINE 20 MG/50 ML IVPB 20 MG/50 ML MG IVPB ONE (09:30)
[2021-07-09] MEDS ORDERED: DEXAMETHASONE SODIUM PHOSPHATE 4 MG, DIPHENHYDRAMINE 25 MG in SODIUM CHLORIDE 100 ML IVPB ONE (09:30)
[2021-07-09] MEDS ORDERED: TRASTUZUMAB ANNS IVPB ONE (10:00)
[2021-07-09] MEDS ORDERED: SODIUM CHLORIDE IVPB ONE (10:00)
[2021-07-09] MEDS ORDERED: PACLITAXEL 114 MG in SODIUM CHLORIDE 250 ML IVPB ONE (10:30)
[2021-07-09] MEDS ORDERED: DENOSUMAB 120 MG/1.7 ML VIAL SQ ONE (11:15)
[2021-07-09 17:47] VITALS: TEMP 98.4
[2021-07-09] MEDS ORDERED: PORTA CATH FLUSH 10 ML IVPUSH PRN (17:59)
[2021-07-09 18:00] VITALS: BP 135/75; PULSE 70
== END 2021-07-09 15:20 | disposition home or self-care (01) ==
LOC: JONCCHEMO 07:17
PROVIDERS: ATTEND Internal Medicine Hematology & Oncology
DX: Z51.11 Encounter for antineoplastic chemotherapy (principal); C50.911 Malignant neoplasm of unspecified site of right female breast; C77.9 Secondary and unspecified malignant neoplasm of lymph node, unspecified; C79.2 Secondary malignant neoplasm of skin
CPT/HCPCS: 36415; 80053; 83735; 84439; 84443; 85025; 96361; 96367; 96372; 96413; 96417; J0897; Q5117

== ENCOUNTER 2021-07-14 06:35 | Day surgery (SDC) | payer OTHER ==
[2021-07-14] MEDS ORDERED: SODIUM CHLORIDE 500 ML IV STA (08:51)
[2021-07-14 16:38] VITALS: TEMP 98.1
[2021-07-14] MEDS ORDERED: PORTA CATH FLUSH 10 ML IVPUSH PRN (16:40)
[2021-07-14 16:41] VITALS: BP 131/61; PULSE 69
== END 2021-07-14 11:10 | disposition home or self-care (01) ==
LOC: JONCNONCHE 06:35
PROVIDERS: ATTEND Internal Medicine Hematology & Oncology
PROC: 3E0437Z Introduction of Electrolytic and Water Balance Substance into Central Vein, Percutaneous Approach (ICD-10-PCS; principal; 2021-07-14)
DX: Z76.89 Persons encountering health services in other specified circumstances (principal); C50.911 Malignant neoplasm of unspecified site of right female breast
CPT/HCPCS: 96360; 96361

== ENCOUNTER 2021-07-16 08:18 | Day surgery (SDC) | payer OTHER ==
[2021-07-16 09:29] LABS: BASO % 1.7 % (0-2.0); EOS % 1.6 % (0-4.5); HEMATOCRIT 33.9 % (32.4-45.2); HEMOGLOBIN 11.5 GM/dL (10.7-15.3); LYMPH % 29.3 % (8-40); MCH 32.8 pg (25.7-33.7); MCHC 33.9 g/dl (32.0-36.0); MEAN CELL VOLUME 96.9 fl (80-96); MEAN PLT VOLUME 8.3 fl (7.5-11.1); NEUT % 63.4 % (42.8-82.8); PLATELET COUNT 258 10^3/uL (134-434); RDW 15.9 % (11.6-15.6); WHITE BLOOD COUNT 5.3 K/mm3 (4.0-10.0)
[2021-07-16] MEDS ORDERED: FAMOTIDINE 20 MG/50 ML IVPB 20 MG/50 ML MG IVPB ONE (09:30)
[2021-07-16] MEDS ORDERED: DEXAMETHASONE SODIUM PHOSPHATE 10 MG, DIPHENHYDRAMINE 25 MG in SODIUM CHLORIDE 100 ML IVPB ONE (09:30)
[2021-07-16 09:48] LABS: ALBUMIN 3.5 g/dl (3.4-5.0); BLOOD UREA NITROGEN 5.8 mg/dL (7-18)
[2021-07-16 09:51] LABS: CREATININE 0.8 mg/dL (0.55-1.3)
[2021-07-16 09:53] LABS: BILIRUBIN,TOTAL 0.7 mg/dL (0.2-1)
[2021-07-16] MEDS ORDERED: PACLITAXEL 108 MG in SODIUM CHLORIDE 250 ML IVPB ONE (10:00)
[2021-07-16 10:29] VITALS: TEMP 98.1
[2021-07-16] MEDS ORDERED: SODIUM CHLORIDE IVPB ONE (11:00)
[2021-07-16] MEDS ORDERED: TRASTUZUMAB ANNS IVPB ONE (11:00)
[2021-07-16 17:06] VITALS: BP 138/78; PULSE 72
== END 2021-07-16 14:00 | disposition home or self-care (01) ==
LOC: JONCCHEMO 08:18
PROVIDERS: ATTEND Internal Medicine Hematology & Oncology
DX: Z51.11 Encounter for antineoplastic chemotherapy (principal); C50.919 Malignant neoplasm of unspecified site of unspecified female breast
CPT/HCPCS: 36415; 80053; 84439; 84443; 85025; 96367; 96413; 96417; Q5117

== ENCOUNTER 2021-07-23 08:32 | Day surgery (SDC) | payer OTHER ==
[2021-07-23] MEDS ORDERED: FAMOTIDINE 20 MG/50 ML IVPB 20 MG/50 ML MG IVPB ONE (09:30)
[2021-07-23] MEDS ORDERED: DEXAMETHASONE SODIUM PHOSPHATE 10 MG, DIPHENHYDRAMINE 25 MG in SODIUM CHLORIDE 100 ML IVPB ONE (09:30)
[2021-07-23 09:34] LABS: ALBUMIN 3.2 g/dl (3.4-5.0); BLOOD UREA NITROGEN 7.3 mg/dL (7-18); CALCIUM 8.8 mg/dL (8.5-10.1)
[2021-07-23 09:37] LABS: CREATININE 0.8 mg/dL (0.55-1.3)
[2021-07-23 09:39] LABS: BILIRUBIN,TOTAL 0.7 mg/dL (0.2-1); TOT PROT 6.6 g/dl (6.4-8.2)
[2021-07-23 09:52] LABS: BASO % 1.1 % (0-2.0); EOS % 1.4 % (0-4.5); HEMATOCRIT 34.6 % (32.4-45.2); HEMOGLOBIN 11.1 GM/dL (10.7-15.3); MCH 31.5 pg (25.7-33.7); MEAN CELL VOLUME 98.2 fl (80-96); MEAN PLT VOLUME 8.8 fl (7.5-11.1); MONO % 5.4 % (3.8-10.2); NEUT % 53.1 % (42.8-82.8); PLATELET COUNT 258 10^3/uL (134-434); RBC 3.53 M/mm3 (3.60-5.2)
[2021-07-23] MEDS ORDERED: PERTUZUMAB 420 MG in SODIUM CHLORIDE 250 ML IVPB ONE (10:00)
[2021-07-23] MEDS ORDERED: DEXAMETHASONE SOD PHOSPHATE 4 MG/1 ML VIAL IM ONE (10:15)
[2021-07-23] MEDS ORDERED: DEXAMETHASONE SOD PHOSPHATE 4 MG/1 ML VIAL IVPB ONE (10:15)
[2021-07-23] MEDS ORDERED: TRASTUZUMAB ANNS IVPB ONE (10:30)
[2021-07-23] MEDS ORDERED: DEXAMETHASONE SODIUM PHOSPHATE 8 MG, DIPHENHYDRAMINE 25 MG in SODIUM CHLORIDE 100 ML IVPB ONE (10:30)
[2021-07-23] MEDS ORDERED: SODIUM CHLORIDE IVPB ONE (10:30)
[2021-07-23] MEDS ORDERED: PACLITAXEL 108 MG in SODIUM CHLORIDE 250 ML IVPB ONE (11:00)
[2021-07-23 18:27] VITALS: PULSE 74; TEMP 97.9
[2021-07-23 18:36] VITALS: BP 125/75
== END 2021-07-23 14:15 | disposition home or self-care (01) ==
LOC: JONCCHEMO 08:32
PROVIDERS: ATTEND Internal Medicine Hematology & Oncology
DX: Z51.11 Encounter for antineoplastic chemotherapy (principal); C50.919 Malignant neoplasm of unspecified site of unspecified female breast
CPT/HCPCS: 36415; 80053; 85025; 96367; 96413; 96417; Q5117

== ENCOUNTER 2021-07-30 08:20 | Day surgery (SDC) | payer OTHER ==
[2021-07-30 09:00] LABS: BASO % 1.2 % (0-2.0); EOS % 0.7 % (0-4.5); HEMATOCRIT 32.3 % (32.4-45.2); HEMOGLOBIN 10.6 GM/dL (10.7-15.3); LYMPH % 36.2 % (8-40); MCH 31.5 pg (25.7-33.7); MCHC 32.6 g/dl (32.0-36.0); MEAN CELL VOLUME 96.4 fl (80-96); MEAN PLT VOLUME 8.7 fl (7.5-11.1); MONO % 6.3 % (3.8-10.2); NEUT % 55.6 % (42.8-82.8); PLATELET COUNT 302 10^3/uL (134-434); RBC 3.35 M/mm3 (3.60-5.2); RDW 16.4 % (11.6-15.6); WHITE BLOOD COUNT 4.2 K/mm3 (4.0-10.0)
[2021-07-30 09:19] LABS: CALCIUM 8.6 mg/dL (8.5-10.1)
[2021-07-30 09:23] LABS: CREATININE 0.7 mg/dL (0.55-1.3)
[2021-07-30 09:24] LABS: TOT PROT 6.4 g/dl (6.4-8.2)
[2021-07-30] MEDS ORDERED: FAMOTIDINE 20 MG/50 ML IVPB 20 MG/50 ML MG IVPB ONE (10:00)
[2021-07-30] MEDS ORDERED: DEXAMETHASONE SODIUM PHOSPHATE 10 MG, DIPHENHYDRAMINE 25 MG in SODIUM CHLORIDE 100 ML IVPB ONE (10:00)
[2021-07-30] MEDS ORDERED: SODIUM CHLORIDE IVPB ONE (10:30)
[2021-07-30] MEDS ORDERED: TRASTUZUMAB ANNS IVPB ONE (10:30)
[2021-07-30] MEDS ORDERED: PACLITAXEL 108 MG in SODIUM CHLORIDE 250 ML IVPB ONE (11:00)
[2021-07-30 17:58] VITALS: BP 142/79; PULSE 68; TEMP 98.2
[2021-07-30] MEDS ORDERED: PORTA CATH FLUSH 10 ML IVPUSH PRN (17:58)
== END 2021-07-30 14:10 | disposition home or self-care (01) ==
LOC: JONCCHEMO 08:20
PROVIDERS: ATTEND Internal Medicine Hematology & Oncology
DX: Z51.11 Encounter for antineoplastic chemotherapy (principal); C50.919 Malignant neoplasm of unspecified site of unspecified female breast
CPT/HCPCS: 36415; 80053; 85025; 96367; 96413; 96417; Q5117

== ENCOUNTER → 2021-08-06 | Day surgery (SDC) | payer OTHER ==
[~2021-08-06] MED LIST changes: +DEXAMETHASONE SODIUM PHOSPHATE 10 MG, DIPHENHYDRAMINE 25 MG in SODIUM CHLORIDE 100 ML IVPB ONE; +PACLITAXEL 108 MG in SODIUM CHLORIDE 250 ML IVPB ONE; +SODIUM CHLORIDE IVPB ONE; +TRASTUZUMAB ANNS IVPB ONE
[2021-08-06 09:05] LABS: BASO % 0.8 % (0-2.0); EOS % 1.4 % (0-4.5); HEMOGLOBIN 10.3 GM/dL (10.7-15.3); LYMPH % 34.9 % (8-40); MCH 31.5 pg (25.7-33.7); MCHC 33.1 g/dl (32.0-36.0); MEAN CELL VOLUME 95.1 fl (80-96); MONO % 6.2 % (3.8-10.2); NEUT % 56.7 % (42.8-82.8); PLATELET COUNT 293 10^3/uL (134-434); RBC 3.26 M/mm3 (3.60-5.2); RDW 16.9 % (11.6-15.6); WHITE BLOOD COUNT 4.3 K/mm3 (4.0-10.0)
[2021-08-06 09:28] LABS: ALBUMIN 3.2 g/dl (3.4-5.0); BLOOD UREA NITROGEN 9.3 mg/dL (7-18); CALCIUM 8.8 mg/dL (8.5-10.1); MAGNESIUM 2.1 mg/dL (1.8-2.4)
[2021-08-06 09:30] LABS: CREATININE 0.7 mg/dL (0.55-1.3)
[2021-08-06 09:32] LABS: BILIRUBIN,TOTAL 1.5 mg/dL (0.2-1); TOT PROT 6.4 g/dl (6.4-8.2)
== END | disposition home or self-care (01) ==
LOC: JONCCHEMO 07:19
PROVIDERS: ATTEND Internal Medicine Hematology & Oncology
DX: Z53.8 Procedure and treatment not carried out for other reasons (principal)
CPT/HCPCS: 36415; 80053; 83735; 85025; 96365; Q5117

== ENCOUNTER 2021-08-13 06:34 | Day surgery (SDC) | payer OTHER ==
[2021-08-13 08:56] LABS: BASO % 0.7 % (0-2.0); EOS % 1.1 % (0-4.5); HEMATOCRIT 31.5 % (32.4-45.2); HEMOGLOBIN 10.5 GM/dL (10.7-15.3); LYMPH % 29.3 % (8-40); MCH 30.9 pg (25.7-33.7); MCHC 33.2 g/dl (32.0-36.0); MEAN CELL VOLUME 93.2 fl (80-96); MEAN PLT VOLUME 8.5 fl (7.5-11.1); MONO % 9.3 % (3.8-10.2); NEUT % 59.6 % (42.8-82.8); PLATELET COUNT 286 10^3/uL (134-434); RBC 3.38 M/mm3 (3.60-5.2)
[2021-08-13 09:12] LABS: CALCIUM 7.6 mg/dL (8.5-10.1)
[2021-08-13 09:15] LABS: CREATININE 0.7 mg/dL (0.55-1.3)
[2021-08-13 09:17] LABS: BILIRUBIN,TOTAL 0.6 mg/dL (0.2-1); TOT PROT 6.2 g/dl (6.4-8.2)
[2021-08-13] MEDS ORDERED: POTASSIUM CHLORIDE ORAL LIQUID 20 MEQ/15 ML PO ONE ×2 (09:44→09:48)
[2021-08-13] MEDS ORDERED: DEXAMETHASONE SOD PHOSPHATE 20 MG/5 ML VIAL IVPB ONE (09:48)
[2021-08-13] MEDS ORDERED: FAMOTIDINE 20 MG/50 ML IVPB 20 MG/50 ML MG IVPB ONE (10:00)
[2021-08-13] MEDS ORDERED: DEXAMETHASONE SODIUM PHOSPHATE 10 MG, DIPHENHYDRAMINE 25 MG in SODIUM CHLORIDE 100 ML IVPB ONE (10:00)
[2021-08-13] MEDS: KCL 10 MEQ IVPB 10 MEQ/100 ML INFUS.BAG IVPB SCH ×2 (10:29→14:44)
[2021-08-13] MEDS ORDERED: SODIUM CHLORIDE IVPB ONE (10:30)
[2021-08-13] MEDS ORDERED: TRASTUZUMAB ANNS IVPB ONE (10:30)
[2021-08-13] MEDS ORDERED: PACLITAXEL 108 MG in SODIUM CHLORIDE 250 ML IVPB ONE (11:00)
[2021-08-13 17:36] VITALS: TEMP 98.5
[2021-08-13] MEDS ORDERED: PORTA CATH FLUSH 10 ML IVPUSH PRN (17:42)
[2021-08-13 17:43] VITALS: BP 149/83; PULSE 68
== END 2021-08-13 16:00 | disposition home or self-care (01) ==
LOC: JONCCHEMO 06:34
PROVIDERS: ATTEND Internal Medicine Hematology & Oncology
PROC: 3E04305 Introduction of Other Antineoplastic into Central Vein, Percutaneous Approach (ICD-10-PCS; principal; 2021-08-13)
PROC: 3E043GC Introduction of Other Therapeutic Substance into Central Vein, Percutaneous Approach (ICD-10-PCS; 2021-08-13)
DX: Z51.11 Encounter for antineoplastic chemotherapy (principal); C50.919 Malignant neoplasm of unspecified site of unspecified female breast
CPT/HCPCS: 36415; 80053; 85025; 96367; 96368; 96413; 96417; Q5117

== ENCOUNTER → 2021-08-20 | Day surgery (SDC) | payer OTHER ==
[2021-08-20 09:01] LABS: BASO % 1.8 % (0-2.0); EOS % 1.4 % (0-4.5); LYMPH % 29.7 % (8-40); MCH 30.4 pg (25.7-33.7); MCHC 32.5 g/dl (32.0-36.0); MEAN CELL VOLUME 93.6 fl (80-96); MEAN PLT VOLUME 8.6 fl (7.5-11.1); MONO % 3.9 % (3.8-10.2); NEUT % 63.2 % (42.8-82.8); PLATELET COUNT 263 10^3/uL (134-434); RBC 3.63 M/mm3 (3.60-5.2); RDW 16.3 % (11.6-15.6); WHITE BLOOD COUNT 5.2 K/mm3 (4.0-10.0)
[2021-08-20 09:30] LABS: ALBUMIN 3.4 g/dl (3.4-5.0); CALCIUM 7.9 mg/dL (8.5-10.1)
[2021-08-20 09:31] LABS: BLOOD UREA NITROGEN 4.7 mg/dL (7-18)
[2021-08-20 09:33] LABS: CREATININE 0.8 mg/dL (0.55-1.3)
[2021-08-20 09:35] LABS: BILIRUBIN,TOTAL 1.2 mg/dL (0.2-1); TOT PROT 6.7 g/dl (6.4-8.2)
== END | disposition home or self-care (01) ==
LOC: JONCCHEMO 07:34
PROVIDERS: ATTEND Internal Medicine Hematology & Oncology
DX: Z53.8 Procedure and treatment not carried out for other reasons (principal)
CPT/HCPCS: 36415; 80053; 85025; Q5117

== ENCOUNTER 2021-08-27 07:39 | Day surgery (SDC) | payer OTHER ==
[2021-08-27 09:32] LABS: BASO % 0.8 % (0-2.0); EOS % 2.2 % (0-4.5); HEMATOCRIT 36.1 % (32.4-45.2); HEMOGLOBIN 11.7 GM/dL (10.7-15.3); LYMPH % 33.4 % (8-40); MCH 30.3 pg (25.7-33.7); MCHC 32.4 g/dl (32.0-36.0); MEAN CELL VOLUME 93.5 fl (80-96); MEAN PLT VOLUME 8.2 fl (7.5-11.1); NEUT % 55.6 % (42.8-82.8); PLATELET COUNT 243 10^3/uL (134-434); RBC 3.86 M/mm3 (3.60-5.2); RDW 16.5 % (11.6-15.6); WHITE BLOOD COUNT 5.2 K/mm3 (4.0-10.0)
[2021-08-27 09:52] LABS: ALBUMIN 3.4 g/dl (3.4-5.0); BLOOD UREA NITROGEN 12.3 mg/dL (7-18)
[2021-08-27 09:55] LABS: CREATININE 0.9 mg/dL (0.55-1.3)
[2021-08-27 09:57] LABS: BILIRUBIN,TOTAL 0.7 mg/dL (0.2-1); TOT PROT 6.9 g/dl (6.4-8.2)
[2021-08-27 10:04] LABS: CALCIUM 9.2 mg/dL (8.5-10.1)
[2021-08-27] MEDS ORDERED: FAMOTIDINE 20 MG/50 ML IVPB 20 MG/50 ML MG IVPB ONE (11:00)
[2021-08-27] MEDS ORDERED: DEXAMETHASONE SODIUM PHOSPHATE 10 MG, DIPHENHYDRAMINE 25 MG in SODIUM CHLORIDE 100 ML IVPB ONE (11:00)
[2021-08-27] MEDS ORDERED: TRASTUZUMAB ANNS IVPB ONE (11:30)
[2021-08-27] MEDS ORDERED: PACLITAXEL 108 MG in SODIUM CHLORIDE 250 ML IVPB ONE (11:30)
[2021-08-27] MEDS ORDERED: SODIUM CHLORIDE IVPB ONE (11:30)
[2021-08-27 16:32] VITALS: BP 138/85; PULSE 65; TEMP 98.8
[2021-08-27] MEDS ORDERED: PORTA CATH FLUSH 10 ML IVPUSH PRN (16:32)
== END 2021-08-27 14:50 | disposition home or self-care (01) ==
LOC: JONCCHEMO 07:39
PROVIDERS: ATTEND Internal Medicine Hematology & Oncology
DX: Z51.11 Encounter for antineoplastic chemotherapy (principal); C50.919 Malignant neoplasm of unspecified site of unspecified female breast
CPT/HCPCS: 36415; 80053; 85025; 96367; 96413; 96417; Q5117

== ENCOUNTER 2021-09-03 07:20 | Day surgery (SDC) | payer OTHER ==
[2021-09-03 09:57] LABS: BASO % 1.3 % (0-2.0); EOS % 1.5 % (0-4.5); HEMATOCRIT 34.3 % (32.4-45.2); HEMOGLOBIN 10.8 GM/dL (10.7-15.3); LYMPH % 33.9 % (8-40); MCH 29.6 pg (25.7-33.7); MCHC 31.5 g/dl (32.0-36.0); MEAN PLT VOLUME 9.2 fl (7.5-11.1); MONO % 2.6 % (3.8-10.2); NEUT % 60.7 % (42.8-82.8); PLATELET COUNT 228 10^3/uL (134-434); RBC 3.65 M/mm3 (3.60-5.2); WHITE BLOOD COUNT 5.6 K/mm3 (4.0-10.0)
[2021-09-03 10:14] LABS: ALBUMIN 3.4 g/dl (3.4-5.0); CALCIUM 9.1 mg/dL (8.5-10.1)
[2021-09-03 10:15] LABS: BLOOD UREA NITROGEN 14.3 mg/dL (7-18)
[2021-09-03 10:19] LABS: BILIRUBIN,TOTAL 1.2 mg/dL (0.2-1); TOT PROT 6.5 g/dl (6.4-8.2)
[2021-09-03] MEDS ORDERED: SODIUM CHLORIDE IVPB ONE (11:00)
[2021-09-03] MEDS ORDERED: TRASTUZUMAB ANNS IVPB ONE (11:00)
[2021-09-03 16:24] VITALS: TEMP 98.3
[2021-09-03] MEDS ORDERED: PORTA CATH FLUSH 10 ML IVPUSH PRN (16:36)
[2021-09-03 16:41] VITALS: BP 122/67; PULSE 70
== END 2021-09-03 12:35 | disposition home or self-care (01) ==
LOC: JONCCHEMO 07:20
PROVIDERS: ATTEND Internal Medicine Hematology & Oncology
DX: Z51.11 Encounter for antineoplastic chemotherapy (principal); C50.919 Malignant neoplasm of unspecified site of unspecified female breast
CPT/HCPCS: 36415; 80053; 85025; 96413; Q5117

== ENCOUNTER 2021-09-09 10:33 | Day surgery (SDC) | payer OTHER ==
[2021-09-04 09:48] VITALS: BMI 28.3
[2021-09-09 13:23] VITALS: RESP 20; TEMP 97.1
[2021-09-09 15:04] VITALS: BP 128/62; PULSE 61
== END 2021-09-09 13:53 | disposition home or self-care (01) ==
LOC: FASU-ENDO 10:33
PROVIDERS: ATTEND Internal Medicine Gastroenterology
PROC: 0DBP8ZX Excision of Rectum, Via Natural or Artificial Opening Endoscopic, Diagnostic (ICD-10-PCS; principal; 2021-09-09 12:30)
DX: D12.8 Benign neoplasm of rectum (principal); C50.919 Malignant neoplasm of unspecified site of unspecified female breast; R93.3 Abnormal findings on diagnostic imaging of other parts of digestive tract
CPT/HCPCS: 88305-TC

== ENCOUNTER 2021-09-10 06:58 | Day surgery (SDC) | payer OTHER ==
[2021-09-10 09:51] LABS: EOS % 0.9 % (0-4.5); HEMATOCRIT 33.9 % (32.4-45.2); LYMPH % 36.3 % (8-40); MCH 29.7 pg (25.7-33.7); MCHC 32.4 g/dl (32.0-36.0); MEAN CELL VOLUME 91.5 fl (80-96); MEAN PLT VOLUME 7.9 fl (7.5-11.1); MONO % 7.2 % (3.8-10.2); NEUT % 54.6 % (42.8-82.8); PLATELET COUNT 221 10^3/uL (134-434); RDW 16.4 % (11.6-15.6); WHITE BLOOD COUNT 4.9 K/mm3 (4.0-10.0)
[2021-09-10] MEDS ORDERED: TRASTUZUMAB ANNS IVPB ONE (10:00)
[2021-09-10] MEDS ORDERED: SODIUM CHLORIDE IVPB ONE (10:00)
[2021-09-10 10:09] LABS: CALCIUM 8.1 mg/dL (8.5-10.1)
[2021-09-10 10:10] LABS: ALBUMIN 3.3 g/dl (3.4-5.0)
[2021-09-10 10:13] LABS: CREATININE 0.9 mg/dL (0.55-1.3)
[2021-09-10 10:14] LABS: BILIRUBIN,TOTAL 0.9 mg/dL (0.2-1); TOT PROT 6.7 g/dl (6.4-8.2)
[2021-09-10 18:11] VITALS: PULSE 70; TEMP 98.8
[2021-09-10 18:15] VITALS: BP 120/77; RESP 18
[2021-09-10] MEDS ORDERED: PORTA CATH FLUSH 10 ML IVPUSH PRN (18:15)
== END 2021-09-10 13:15 | disposition home or self-care (01) ==
LOC: JONCCHEMO 06:58
PROVIDERS: ATTEND Internal Medicine Hematology & Oncology
DX: Z51.11 Encounter for antineoplastic chemotherapy (principal); C50.919 Malignant neoplasm of unspecified site of unspecified female breast
CPT/HCPCS: 36415; 80053; 85025; 96413; Q5117

== ENCOUNTER 2021-09-17 06:39 | Day surgery (SDC) | payer OTHER ==
[2021-09-17 09:11] LABS: BASO % 0.6 % (0-2.0); EOS % 1.3 % (0-4.5); HEMATOCRIT 35.3 % (32.4-45.2); HEMOGLOBIN 11.5 GM/dL (10.7-15.3); LYMPH % 31.1 % (8-40); MCH 29.7 pg (25.7-33.7); MCHC 32.6 g/dl (32.0-36.0); MEAN CELL VOLUME 91.2 fl (80-96); MEAN PLT VOLUME 8.3 fl (7.5-11.1); MONO % 5.8 % (3.8-10.2); NEUT % 61.2 % (42.8-82.8); PLATELET COUNT 208 10^3/uL (134-434); RBC 3.87 M/mm3 (3.60-5.2); WHITE BLOOD COUNT 5.2 K/mm3 (4.0-10.0)
[2021-09-17 09:29] LABS: ALBUMIN 3.2 g/dl (3.4-5.0); BLOOD UREA NITROGEN 14.6 mg/dL (7-18); CALCIUM 8.6 mg/dL (8.5-10.1)
[2021-09-17 09:32] LABS: CREATININE 0.9 mg/dL (0.55-1.3)
[2021-09-17 09:34] LABS: TOT PROT 6.5 g/dl (6.4-8.2)
[2021-09-17 09:38] LABS: BILIRUBIN,TOTAL 0.9 mg/dL (0.2-1)
[2021-09-17] MEDS ORDERED: SODIUM CHLORIDE IVPB ONE (10:00)
[2021-09-17] MEDS ORDERED: TRASTUZUMAB ANNS IVPB ONE (10:00)
[2021-09-17 14:11] VITALS: BP 136/84; PULSE 68; RESP 20; TEMP 98.3
== END 2021-09-17 14:36 | disposition home or self-care (01) ==
LOC: JONCCHEMO 06:39
PROVIDERS: ATTEND Internal Medicine Hematology & Oncology
DX: Z51.11 Encounter for antineoplastic chemotherapy (principal); C50.919 Malignant neoplasm of unspecified site of unspecified female breast
CPT/HCPCS: 36415; 80053; 85025; 96413; Q5117